=== PATIENT | female | born 1985 | race Caucasian/White ===

== ENCOUNTER 2018-02-17 23:01 | Emergency (ER) | payer OTHER ==
[2018-02-17 23:08] VITALS: O2SAT 100
[2018-02-17] MEDS ORDERED: Dextrose 5%/Lactated Ringer's 1,000 ML IV SCH (23:30)
--- NOTE | 2018-02-17 23:46 | ED PDOC ---
HPI:Nausea, Vomiting, Diarrhea Time Seen by Provider: 02/17/18 23:14 Chief Complaint (Nursing): GI Problem Chief Complaint (Provider): Vomiting History Per: Patient, EMS History/Exam Limitations: no limitations Onset/Duration Of Symptoms: Mins Current Symptoms Are (Timing): Still Present Associated Symptoms: Vomiting Additional Complaint(s): 32 year old female presents to the ED complaining of vomiting that started yesterday. Patient is at approximately 9 weeks gestation. She reports of having more than 10 episodes of nonbloody and non bilious vomiting and states that she is unable to tolerate water. Patient is also complaining of having a headache but denies abdominal pain, vaginal bleeding, or vaginal discharge. Patient's [employer]LECT[employer] is at [facility]. She indicates she had an ultrasound done that showed a normal IUP. Denies fevers and cough. PMD: Suzi Louis Past Medical History Reviewed: Historical Data, Nursing Documentation, Vital Signs Vital Signs: Last Vital Signs Temp 98.6 F 02/17/18 23:04 Pulse 83 02/17/18 23:04 Resp 16 02/17/18 23:04 BP 106/65 02/17/18 23:04 Pulse Ox 100 02/17/18 23:04 - Medical History PMH: No Chronic Diseases - Surgical History Surgical History: No Surg Hx - Family History Family History: States: Unknown Family Hx - Home Medications Home Medications: Ambulatory Orders Medication Instructions Recorded Doxylamine/Pyridoxine HCl (B6) 1 each PO DAILY #20 tablet. 02/18/18 [Yaron Robles 10-10 mg Tablet] Famotidine [Heartburn Prevention] 20 mg PO BID #30 tablet 02/18/18 - Allergies Allergies/Adverse Reactions: Allergies Allergy/AdvReac Type Severity Reaction Status Date / Time No Known Allergies Allergy Verified 02/17/18 23:08 Review of Systems ROS Statement: Except As Marked, All Systems Reviewed And Found Negative Constitutional: Negative for: Fever Respiratory: Negative for: Cough Gastrointestinal: Positive for: Vomiting (nonbloody and nonbilious). Negative for: Abdominal Pain Genitourinary Female: Negative for: Vaginal Discharge, Vaginal Bleeding Neurological: Positive for: Headache Physical Exam - Reviewed Nursing Documentation Reviewed: Yes Vital Signs Reviewed: Yes - Physical Exam Appears: Positive for: Non-toxic, No Acute Distress Head Exam: Positive for: ATRAUMATIC, NORMOCEPHALIC Skin: Positive for: Normal Color, Warm, Dry Eye Exam: Positive for: Normal appearance ENT: Positive for: Normal ENT Inspection Neck: Positive for: Normal, Painless ROM Cardiovascular/Chest: Positive for: Regular Rate, Rhythm. Negative for: Murmur Respiratory: Positive for: Normal Breath Sounds. Negative for: Wheezing, Respiratory Distress Gastrointestinal/Abdominal: Positive for: Normal Exam, Soft. Negative for: Tenderness Extremity: Positive for: Normal ROM Neurologic/Psych: Positive for: Alert, Oriented. Negative for: Motor/Sensory Deficits - Laboratory Results Result Diagrams: 02/18/18 00:29 02/18/18 00:29 - ECG O2 Sat by Pulse Oximetry: 100 (RA) Pulse Ox Interpretation: Normal Medical Decision Making Medical Decision Making: Initial Impression: Well appearing female presenting with hyperemesis No abdominal pain Initial Plan: --BMP --ED urine --ED urine dipstick --CBC --Dextrose 5% 1000mL IV --Reglan 10mg IV 02:57 Upon reevaluation, patient is feeling much better and does not feel nauseous anymore. Patient tolerated PO and is stable for discharge. Well appearing upon discharge Scribe Attestation: Documented by Marcelino Garg acting as a scribe for Danyel Lechuga MD. Provider Scribe Attestation: All medical record entries made by the Scribe were at my direction and personally dictated by me. I have reviewed the chart and agree that the record accurately reflects my personal performance of the history, physical exam, medical decision making, and the department course for this patient. I have also personally directed, reviewed, and agree with the discharge instructions and disposition. Disposition - Clinical Impression Clinical Impression: Hyperemesis gravidarum - Disposition Referrals: [facility] [Outside] Disposition Time: 03:26 Condition: IMPROVED Prescriptions: Doxylamine/Pyridoxine HCl (B6) [Yaron Robles 10-10 mg Tablet] 1 each PO DAILY #20 tablet. Famotidine [Heartburn Prevention] 20 mg PO BID #30 tablet Instructions: Hyperemesis Gravidarum, Nausea and Vomiting of Forms: [facility] ([place])
[2018-02-18 00:44] LABS: BASO % 0.3 % (0.0-2.0); EOS % 0.3 % (0.0-4.0); HEMOGLOBIN 12.8 g/dL (12.0-16.0); LYMPH # 1.2 K/uL (1.0-4.3); LYMPH % 11.6 % (20.0-40.0); MEAN CELL VOLUME 83.4 fl (81.0-99.0); MEAN CORPUSCULAR HEMOGLOBIN 28.1 pg (27.0-31.0); MEAN CORPUSCULAR HGB CONC 33.6 g/dL (33.0-37.0); MEAN PLATELET VOLUME 9.7 fl (7.2-11.7); MONO # 0.3 K/uL (0.0-0.8); MONO % 2.7 % (0.0-10.0); NEUT # 8.5 K/uL (1.8-7.0); NEUT % 85.1 % (50.0-75.0); RBC 4.54 Mil/uL (3.80-5.20); RED CELL DISTRIBUTION WIDTH 14.6 % (11.5-14.5); WHITE BLOOD COUNT 9.9 K/uL (4.8-10.8)
[2018-02-18 00:50] LABS: BLOOD UREA NITROGEN 6 mg/dl (7-17); CALCIUM 8.9 mg/dL (8.4-10.2); GFR NON-AFRICAN AMERICAN > 60
[2018-02-18 03:09] VITALS: BP 102/63; PULSE 87; RESP 18; TEMP 98.9
== END 2018-02-18 03:36 | disposition home or self-care (01) ==
LOC: H.ER 23:01
DX: O21.0 Mild hyperemesis gravidarum (principal); Z3A.09 9 weeks gestation of pregnancy
CPT/HCPCS: 80048; 85025; 96374; 99284; J2765; J7120